=== PATIENT | female | born 1960 | race Caucasian/White ===

== ENCOUNTER → 2020-01-06 | Outpatient (CLI) | payer OTHER ==
--- NOTE | 2020-01-06 09:27 | Diagnostic Imaging Report ---
INDICATION: Palpable lump at the 4 o'clock location of the left breast. COMPARISON: Prior mammogram from 05/22/2016. TECHNIQUE: 2D and 3D bilateral diagnostic mammography was performed with CAD. FINDINGS: There are bilateral breast implants. The implant contours appear to be stable. Both breasts are heterogeneously dense. No mass or malignant appearing microcalcifications are seen. There are benign calcifications present. The axillae do show some coarse calcification on the left in the region of a lymph node. IMPRESSION: No mammographic features suspicious for malignancy are identified. Even so, directed sonographic interrogation of the area of palpable abnormality is recommended. In addition, an ultrasound of the left axilla is recommended. ACR BI-RADS Category 0: Incomplete. (Needs additional imaging evaluation). Result letter will be mailed to the patient. Note: At least 10% of breast cancer is not imaged by mammography. Dictated by: Dictated on workstation # [id number]
--- NOTE | 2020-01-06 11:01 | Diagnostic Imaging Report ---
INDICATION: Palpable lump in the left breast. COMPARISON: Correlation is made with the diagnostic mammogram from earlier this same day. FINDINGS: Sonographic interrogation of the area of palpable abnormality in the left breast was performed. This corresponds to the 4 o'clock location. There is a circumscribed, hypoechoic nodule at this location 4 cm from the nipple measuring 7 mm x 7 mm x 6 mm. This does demonstrate an echogenic periphery with posterior acoustic shadowing, consistent with a partially calcified nodule. This has the appearance of an oil cyst. This does correspond to the circumscribed calcified nodule noted mammographically. No suspicious breast mass is identified. Evaluation of the left axilla was also performed. There is an enlarged lymph node in the left axilla measuring 3.4 x 1.2 x 1.5 cm. This does contain some calcifications corresponding to the large calcifications noted mammographically. This lymph node is indeterminate. This does not have normal lymph node architecture. No other abnormalities are seen. IMPRESSION: 1. Oil cyst at the 4 o'clock location of the left breast 4 cm from the nipple corresponding to the palpable abnormality. This is a benign finding. 2. Enlarged left axillary lymph node with calcifications corresponding to the mammographic finding. Tissue sampling is recommended. This would be amenable to ultrasound-guided core biopsy. ACR BI-RADS Category 4: Suspicious abnormality. Dictated by: Dictated on workstation # [id number]
== END ==
LOC: RAD 09:15
PROVIDERS: ATTEND Nurse Practitioner Family
DX: N60.02 Solitary cyst of left breast (principal); N63.20 Unspecified lump in the left breast, unspecified quadrant; R59.0 Localized enlarged lymph nodes
CPT/HCPCS: 76642; 77066; G0279; 77062

== ENCOUNTER → 2020-01-12 | Outpatient (CLI) | payer OTHER ==
[~2020-01-12] VITALS: Ht 160 cm; Wt 75.5 kg
[~2020-01-12] MED LIST: LIDOCAINE 1% INJ 20 ML 20 ML VIAL INJ ONE
--- NOTE | 2020-01-12 18:55 | Diagnostic Imaging Report ---
INDICATION: Abnormal left axillary lymph node. PROCEDURE: The patient presents for an ultrasound-guided biopsy. The patient was brought to the ultrasound suite and placed on the table in the supine position. Ultrasound imaging of the left axilla was performed to evaluate appropriate entry site. Left axilla was then prepped and draped in the usual sterile fashion. A small amount of 1% lidocaine was utilized for local anesthesia. Multiple core biopsies were performed of the abnormal lymph node with calcifications in the left axilla utilizing a 14-gauge Achieve needle. A marker clip was then deployed. Hemostasis was obtained using manual compression. The patient tolerated the procedure well and was sent for a post procedure mammogram in satisfactory condition. IMPRESSION: Successful ultrasound guided core biopsy of a left axillary lymph node. Pathology results are currently pending. Dictated by: Dictated on workstation # [id number]
--- NOTE | 2020-01-12 19:02 | Diagnostic Imaging Report ---
INDICATION: Left axillary lymph node biopsy. 2-D MLO views of the left breast were obtained post ultrasound-guided left axillary lymph node biopsy. A marker clip is identified in the left axilla. There is some increased density to the left axilla from recent biopsy. Left breast implant is noted. IMPRESSION: Left axillary lymph node biopsy. Dictated by: Dictated on workstation # [id number]
== END ==
LOC: RAD 13:00
PROVIDERS: ATTEND Nurse Practitioner Family
DX: N63.0 Unspecified lump in unspecified breast (principal)
CPT/HCPCS: 19083; 77065; A4648; G0279

== ENCOUNTER → 2020-08-19 | Outpatient (CLI) | payer OTHER ==
--- NOTE | 2020-08-19 12:52 | Diagnostic Imaging Report ---
INDICATION: Status post left axillary lymph node biopsy. CORRELATION is made with prior exam from 05/22/2016 and 01/06/2020. Unilateral left 2-D and 3-D diagnostic mammography was performed with CAD. There is a left breast implant in place. Implant contour is are stable. The left breast is heterogeneous dense. There are benign calcifications. Calcifications in the left axilla associated with left axillary lymph node are stable and have been previously biopsied and shown to be benign. Marker clip is in place. No new mass or malignant appearing microcalcifications are seen. IMPRESSION: BI-RADS Category 2 No mammographic features suspicious for malignancy are identified. The patient should return in 6 months for bilateral screening mammography. Dictated by: Dictated on workstation # [id number]
== END ==
LOC: RAD 12:45
PROVIDERS: ATTEND Nurse Practitioner Family
DX: N63.0 Unspecified lump in unspecified breast (principal)
CPT/HCPCS: 77065; G0279

== ENCOUNTER → 2021-03-27 | Outpatient (CLI) | payer OTHER ==
--- NOTE | 2021-03-27 11:56 | Diagnostic Imaging Report ---
Indication: Routine screening. Comparison is made with prior mammogram 08/19/2020 and 01/06/2020. 2-D and 3-D bilateral screening mammography was performed with CAD. Bilateral breast implants are noted. Implant contours appear to be fairly stable. Both breasts are heterogeneously dense, limiting the sensitivity of mammography. The parenchymal pattern is stable. Benign calcification on the left is stable. No mass or malignant appearing microcalcifications are seen. Axillae are unremarkable. IMPRESSION: BI-RADS Category 2 No mammographic features suspicious for malignancy are identified. ACR BI-RADS Category 2: Benign findings. Result letter will be mailed to the patient. Note: At least 10% of breast cancer is not imaged by mammography. Dictated by: Dictated on workstation # [id number]
== END ==
LOC: RAD 11:00
PROVIDERS: ATTEND Nurse Practitioner Family
DX: Z12.31 Encounter for screening mammogram for malignant neoplasm of breast (principal)
CPT/HCPCS: 77063; 77067